=== PATIENT | male | born 1965 | race Caucasian/White ===

== ENCOUNTER → 2018-09-15 08:49 | Outpatient (CLI) | payer OTHER, SELFPAY ==
[2018-09-15 12:52] LABS: Absolute Lymphocyte Count 0.64 X10^3/ul (0.83-4.51); Absolute Neutrophil Count 4.7 X10^3/uL (2.0-7.7); Basophil# 0.08 X10^3/uL; Basophil% 1.2 % (0-1); Eosinophil# 0.16 X10^3/uL; Eosinophils% 2.3 % (0-5); Hematocrit 37.5 % (40-54); Hemoglobin 12.8 g/dl (13.0-16.5); Lymphocyte # 0.64 X10^3/ul (4.0); Lymphocyte % 9.3 % (19-41); Mean Corp Hgb Conc 34.1 g/gl (32-36); Mean Corpuscular Hgb 31.1 pg (27.0-32.0); Mean Platelet Vol. 9.8 fl (6.2-12.0); Monocyte# 1.27 X10^3/uL; Monocyte% 18.4 % (0-10); Neutrophil # 4.72 X10^3/uL (2.7-7.7); Neutrophil % 68.2 % (47-70); Platelet Count 159 K/mm3 (150-450); RBC Distribution Width SD 52.9 fl (35.1-43.9); Red Blood Count 4.12 M/mm3 (4.6-6.2); White Blood Count 6.9 K/mm3 (4.4-11.0)
[2018-09-15 12:56] LABS: POSITIVE COUNT NO; POSITIVE DIFFERENTIAL NO; POSITIVE MORPHOLOGY NO
[2018-09-15 13:10] LABS: BNP,B-Type NATRIURETIC PEPTIDE 26.4 pg/mL (0-100)
[2018-09-15 13:26] LABS: ALB/GLOB Ratio 0.8 RATIO (0.9-2.4); AST(SGOT) 193 U/L (15-37); Alanine Aminotransfer ALT/SGPT 53 U/L (16-61); Alkaline Phosphatase 194 U/L (45-117); Anion Gap 11 (5-15); BUN 5 mg/dL (7-18); BUN/Creat Ratio 6.2 RATIO (10-20); Calcium,Total 8.6 mg/dL (8.5-10.1); Chloride 86 mmol/L (98-107); Cholesterol 186 mg/dL (200); Creatinine, Serum 0.81 mg/dL (0.70-1.30); EST Glomerular Filtration Rate 106 mL/min (>60); Est Glom Filt Rate - Afr Amer 129 mL/min (>60); Globulin 3.9 g/dL (2.2-4.2); Glucose 95 mg/dL (74-106); High Density Lipoprotein 13 mg/dL; PSA,Total - Annual Screen 0.12 ng/mL (0.00-4.00); Protein, Total 6.9 g/dL (6.4-8.2); Sodium Level 122 mmol/L (136-145); Thyroid Stim Hormone (TSH) 4.09 uIU/mL (0.358-3.74); Triglycerides 149 mg/dL; Very Low Density Lipoprotein 30 mg/dL (5-40)
== END ==
PROVIDERS: Family Provider Family Medicine; PCP Family Medicine; Visit Provider Family Medicine
DX: Z00.00 Encounter for general adult medical examination without abnormal findings (principal); Z12.5 Encounter for screening for malignant neoplasm of prostate; R60.0 Localized edema; R19.7 Diarrhea, unspecified; R60.9 Edema, unspecified
CPT/HCPCS: 36415; 80053; 80061; 83880; 84153; 84443; 85025; 85379; G0103

== ENCOUNTER → 2018-09-15 15:13 | Outpatient (CLI) | payer OTHER, SELFPAY ==
--- NOTE | 2018-09-15 15:36 | VDLE_ITS ---
Reason For Study: BLE Swelling RIGHT LEFT GSV is normal. GSV is normal. CFV is compressible, spontaneous, phasic, CFV is compressible, spontaneous, phasic, competent and demonstrates normal competent, and demonstrates normal augmentation. augmentation. FV is compressible, spontaneous, phasic, FV is compressible, spontaneous, phasic, competent and demonstrates normal competent and demonstrates normal augmentation. augmentation. POP V is compressible, spontaneous, phasic, POP V is compressible, spontaneous, phasic, competent and demonstrates normal competent and demonstrates normal augmentation. augmentation. T/P Trunk is compressible. T/P Trunk is compressible. PTV is compressible. PTV is compressible. RT PerV is compressible. LT PerV is compressible. Procedure Exam performed in department. The exam was diagnostic. A preliminary report was called and/or faxed to Kate Ramachandran's office @ 3:55 pm. Interpretation Summary Deep veins of the lower extremities are bilaterally patent and compressible segmentally. There is no evidence of deep vein thrombosis on either side. Valvular competence appears intact within the proximal deep venous systems bilaterally. The greater saphenous veins appear bilaterally patent and compressible segmentally. Ordering Physician: Zach Ramachandran Referring Physician: Zach Ramachandran Performed By: Swathi Morataya, RDCS, RVT
== END ==
PROVIDERS: Family Provider Family Medicine; PCP Family Medicine; Referring Provider Family Medicine; Visit Provider Family Medicine
DX: R60.0 Localized edema (principal); R79.89 Other specified abnormal findings of blood chemistry
CPT/HCPCS: 93970

== ENCOUNTER → 2018-09-27 09:40 | Outpatient (CLI) | payer OTHER, SELFPAY ==
--- NOTE | 2018-09-27 09:58 | ECHOCS_ITS ---
Reason For Study: SVT, EDEMA, SUSPECTED CIRRHOSIS Procedure This was a 2D Doppler, Color Flow transthoracic echocardiogram. The study was technically difficult. Exam performed in department. Left Ventricle Normal size and thickness. The estimated ejection fraction is 75 %. Stage 1 diastolic dysfunction. No regional wall motion abnormalities noted. Right Ventricle Normal size and thickness. Normal systolic function. Atria Normal left atrium. Normal right atrium. Normal atrial septum. Mitral Valve The mitral valve is structurally normal. No prolapse or stenosis seen. Tricuspid Valve Normal tricuspid valve. Trivial tricuspid valve insufficiency. Right ventricular systolic pressure estimated to be 35 mmHg. Aortic Valve Trisinus/trileaflet aortic valve. Normal aortic valve. Pulmonic Valve Normal pulmonic valve. Great Vessels Normal aortic root. Normal arch. Normal inferior vena cava. Inferior vena cava collapse with sniff. Pericardium/Pleural No pericardial effusion. Medication 22 gauge I.V. with prn adaptor inserted into right arm. Diluted definity 6ml given slow IV push to enhance endocardial definition. MMode/2D Measurements & Calculations LVIDd: 3.8 cm IVSd: 1.1 cm Ao root diam: 3.0 cm LVIDs: 2.2 cm LVPWd: 1.1 cm RVDd: 3.8 cm FS: 42.5 % LAV(MOD-sp4): 24.2 ml LVAd ap4: 30.0 cm2 SV(MOD-sp4): 66.1 ml EDV(MOD-sp4): 94.2 ml EDV(sp4-el): 97.1 ml LVAs ap4: 14.3 cm2 ESV(MOD-sp4): 28.0 ml ESV(sp4-el): 27.2 ml EF(MOD-sp4): 70.2 % EF(sp4-el): 71.9 % SV(sp4-el): 69.8 ml LA A4 area: 9.8 cm2 LA dimension(2D): 3.3 cm RA A4 area: 7.9 cm2 Time Measurements MV dec time: 0.18 sec Doppler Measurements & Calculations MV E max kyler: 52.8 cm/sec Lat Peak E' Kyler: 15.2 cm/sec Med Peak E' Kyler: 11.9 cm/sec MV A max kyler: 95.9 cm/sec E/E' lat: 3.5 E/E' med: 4.5 MV E/A: 0.55 Ao V2 max: 134.4 cm/sec LV V1 max: 117.8 cm/sec PA V2 max: 119.6 cm/sec Ao max P.2 mmHg LV V1 max P.6 mmHg TR max kyler: 273.0 cm/sec TR max P.8 mmHg Interpretation Summary The estimated ejection fraction is 75 %. Stage 1 diastolic dysfunction. Trivial tricuspid valve insufficiency. Right ventricular systolic pressure estimated to be 35 mmHg. Compared to echo report dated 04/17/2014, LV function has reamined the same, but RVSP has gone from 26 to 35. The study was technically difficult. Contrast injection was performed. There is no comparison study available. Ordering Physician: Zach Ramachandran Referring Physician: Zach Ramachandran Performed By: Hayde Batres RDCS
--- NOTE | 2018-09-27 10:41 | US_ITS ---
STUDY: ABDOMINAL ULTRASOUND - RIGHT UPPER QUADRANT REASON FOR VISIT: Male, 53 years old. Cirrhosis TECHNIQUE: Ultrasound evaluation of the right upper quadrant was performed with real-time and static kelley-scale imaging. TECHNICAL QUALITY: Adequate. COMPARISON: None. FINDINGS: Liver: The liver measures 19.9 cm. Mild hepatomegaly. Mildly echogenic cortex with somewhat diminished deep acoustic transmission consistent with presence of hepatic steatosis. No apparent nodular contour the liver and no apparent cirrhotic nodules within the parenchyma. The bile ducts are within normal limits. There is hepatic color flow. The direction of portal flow is hepatopetal. There is no demonstrated mass lesion. There is ascites surrounding the margins of the liver. Gallbladder: Normal distended gallbladder. The gallbladder wall measures 2 mm. There is a negative sonographic Burch's sign. There is no pericholecystic fluid. There are no gallstones. Call bladder sludge is present. Common Bile Duct (C.B.D.): The common bile duct measures 4 mm. Pancreas: Normal size of the head, body and tail of the pancreas. There is normal echogenicity of the pancreas. There is no demonstrated pancreatic mass or cyst. Right Kidney: Normal size of the right kidney. The right kidney measures 11.3 cm. Normal renal cortex. The right cortex measures 2.0 cm. Inferior pole simple appearing cyst measuring 22 x 15 x 15 mm. There is no right hydronephrosis. US/Liver IMPRESSION: Ascites surrounding the margins of the liver. Suspected hepatic steatosis. Mild hepatomegaly. No specific sonographic features of hepatic cirrhosis. Gallbladder sludge without sonographic features of gallbladder inflammation. Electronically Signed: Bryan Patricia MD at 12:13 EDT Tel , Service support ,
== END ==
PROVIDERS: Family Provider Family Medicine; PCP Family Medicine; Referring Provider Family Medicine; Visit Provider Family Medicine
DX: R60.0 Localized edema (principal); I47.1 Supraventricular tachycardia; K74.60 Unspecified cirrhosis of liver
CPT/HCPCS: 76705; 93306; Q9957; A4216; C8929

== ENCOUNTER 2018-10-01 07:02 | Inpatient (IN) | payer OTHER, SELFPAY ==
[2018-10-01] VITALS (31 sets, daily range): BP systolic 39–95; BP diastolic 25–81; PULSE 97–152; RESP 12–158; TEMP 35.4–36.9; O2SAT 89–116; BMI 35.3; BMI 32.9
[2018-10-01] MEDS: Etomidate 20 MG/10 ML Vial IV (07:07)
[2018-10-01] MEDS: Succinylcholine Chloride 200 MG/10 ML Vial 100 MG IV (07:08)
--- NOTE | 2018-10-01 07:20 | NURSING ---
med surg rt upper quad abd pain
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
[2018-10-01] MEDS: 0.9% Normal Saline 1,000 ML 999 ML IV ×2 (08:10)
--- NOTE | 2018-10-01 08:25 | NURSING ---
DR NERISSA BLUM
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
--- NOTE | 2018-10-01 08:39 | NURSING ---
HOSPITALIST IN ROOM
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
--- NOTE | 2018-10-01 09:15 | NURSING ---
Pt arrived to unit, dressing to head changed prior to transferring patient from ER bed to ICU bed. Both wounds bleeding excessively. ABD and trauma dressings applied.
--- NOTE | 2018-10-01 09:25 | RAD_ITS ---
STUDY: X-RAY CHEST REASON FOR EXAM: Male, 53 years old. Line placement, endotracheal tube placement. TECHNIQUE: Single portable frontal chest. COMPARISON: None. FINDINGS: The tip and proximal port of the nasogastric tube are inferior to the left hemidiaphragm and left of midline most likely within the stomach. There is a right PICC line with tip within the proximal right atrium. The endotracheal tube tip is identified approximately 1 cm proximal to the clarice. Consider repositioning and evaluate with clinical function. The lung volumes are quite small which diminishes sensitivity and specificity. However, the lungs appear grossly clear. There is no evident pleural effusion. There is no pneumothorax. There is mild central vascular congestion. There is prominence of the central/perihilar interstitium. There is potentially a 1.76 cm left medial lung base/left retrocardiac spiculated mass. There are [id number] diffuse degenerative changes of the spine. No evident acute osseous abnormality. There is no demonstrated abnormality of the visualized soft tissue structures of the upper abdomen. RAD/Chest 1 View (Portable) IMPRESSION: Support tubes and lines as above. Consider repositioning the endotracheal tube. Please see above. The central vascular congestion and prominence of the central/perihilar interstitium may represent artifact from the small lung volumes. Potential left medial lung base 1.76 cm mass. Consider further evaluation, initially with high-quality PA and lateral chest exam. No pneumothorax. Elevation of the right hemidiaphragm of indeterminate etiology, chronicity and clinical significance. Electronically Signed: Jose David Sood MD at 10:28 EDT , Service support ,
[2018-10-01 09:36] LABS: Allen Test POS; Base Excess -11 mmol/L (-2 to +2); Bicarbonate 18.1 mmol/L (22-26); Blood Gas Specimen Type ART; FI02 100; Mode A-C; O2 Delivery Device Vent; PEEP 5; PO2 213 mmHG (75-100); RR 12; SITE R Radial; SO2 99 % (95-99); Time Given 918; Total Carbon Dioxide 20 mmol/L; Vt 400; pCO2 55.9 mmHg (35-45); pH 7.12 (7.35-7.45)
--- NOTE | 2018-10-01 09:36 | CPS ---
Critical values on ABG handed to Dr. Earl at [id number]
[2018-10-01 09:37] LABS: Differential Indicated MANUAL DIFF; Hemoglobin 5.8 g/dl (13.0-16.5); Mean Corp Hgb Conc 34.1 g/gl (32-36); Mean Corpuscular Hgb 32.2 pg (27.0-32.0); Mean Corpuscular Volume 94.4 fL (80-94); Mean Platelet Vol. 8.6 fl (6.2-12.0); POSITIVE COUNT YES; POSITIVE DIFFERENTIAL NO; POSITIVE MORPHOLOGY YES; Platelet Count 138 K/mm3 (150-450); RBC Distribution Width CV 15.5 % (11.6-14.6); RBC Distribution Width SD 53.7 fl (35.1-43.9); White Blood Count 11.8 K/mm3 (4.4-11.0)
[2018-10-01] MEDS: Lactated Ringers 1,000 ML 100 ML IV (09:38)
[2018-10-01] MEDS: Sodium Bicarbonate 8.4% 50 ML Syringe 100 MEQ IV (09:38)
[2018-10-01 09:45] LABS: International Normalized Ratio 3.4; Prothrombin Time (Protime)PT. 34.2 SECONDS (11.7-14.9)
[2018-10-01 09:46] LABS: Partial Thromboplast Time 42.5 Seconds (24.1-36.2)
[2018-10-01 10:07] LABS: ALB/GLOB Ratio 0.7 RATIO (0.9-2.4); AST(SGOT) 131 U/L (15-37); Alanine Aminotransfer ALT/SGPT 29 U/L (16-61); Albumin, Serum 1.4 g/dL (3.2-5.0); Alkaline Phosphatase 109 U/L (45-117); Anion Gap 10 (5-15); BUN 6 mg/dL (7-18); BUN/Creat Ratio 5.3 RATIO (10-20); Calcium,Total 6.2 mg/dL (8.5-10.1); Chloride 91 mmol/L (98-107); Creatinine, Serum 1.14 mg/dL (0.70-1.30); EST Glomerular Filtration Rate 71 mL/min (>60); Est Glom Filt Rate - Afr Amer 86 mL/min (>60); Estimated Creatinine Clearance 77.38 ml/min; Glucose 103 mg/dL (74-106); Lactic Acid 5.2 mmol/L (0.4-2.0); Potassium 4.5 mmol/L (3.5-5.1); Protein, Total 3.4 g/dL (6.4-8.2); Sodium Level 120 mmol/L (136-145)
[2018-10-01 10:19] LABS: Blast 1 % (0-0); Eosinophil 2 % (0-5); Hypochromasia 1+; Lymphocyte 5 % (19-41); Metamyelocyte 9 % (0-1); Monocyte 1 % (0-10); Myelocyte 2 (0-0); Neutrophil-Band 3 % (0-5); Neutrophil-Segmented 77 % (47-70); Platelet Estimate SLT DEC (ADEQ); Total Cells Counted 100 (MANUAL DIFF)
[2018-10-01 10:20] LABS: Absolute Neutrophil Count 9.4 X10^3/uL (2.0-7.7); Red Cell Morphology N CYTIC NORMAL (NORM C&C)
--- NOTE | 2018-10-01 11:05 | NURSING ---
Dressing to head changed at this time. 30 4x4 gauze, kerlix x2, trauma ABD dressing x1 and DIANNE wrap applied. Gauze saturated immediately after dressing change.
[2018-10-01] MEDS: Sodium Bicarbonate 50 MEQ/50 ML Vial 100 MEQ IV (11:14)
--- NOTE | 2018-10-01 11:14 | CASEMGMT ---
Social Work: This SW provided [facility] social insurance administrator, Lisa,information regarding next of kin and family members. Lisa aware that patient also has a 83 year old mother in addition to brother (Cornelius) and that Cornelius has left to tell patient's mother about situation. Lisa to meet with family when they arrive back. Will continue to stay available as needed. YEVGENIY Dumont
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
--- NOTE | 2018-10-01 11:29 | CPS ---
Right brachial A-line site done with Dr. Earl's supervision
[2018-10-01 11:36] LABS: Base Excess -7 mmol/L (-2 to +2); Bicarbonate 20.3 mmol/L (22-26); Blood Gas Specimen Type ALINE; FI02 100; Mode A-C; O2 Delivery Device Vent; PEEP 5; PO2 286 mmHG (75-100); RR 16; SITE R Brachial; SO2 100 % (95-99); Time Given 1125; Total Carbon Dioxide 22 mmol/L; Vt 500; pCO2 47.7 mmHg (35-45); pH 7.24 (7.35-7.45)
[2018-10-01] MEDS: Lactated Ringers 4,000 ML 999 ML IV (12:02)
--- NOTE | 2018-10-01 12:20 | NURSING ---
Brother Cornelius at bedside. Decision to stop vasopressors made. Jose Sweeney and Lisa from [facility] at bedside and aware.
--- NOTE | 2018-10-01 12:26 | CASEMGMT ---
Social Work: Patient's mother now present at bedside. Spent time with patient's brother and mother providing support. Patient's mother spoke about seeing patient on Tuesday and thinking he did not look good. Patient's brother and mother able to verbalize openly with this SW feelings of grief and sadness. Active listening and supportive counseling provided. SW available to assist as needed with support to family and staff. YEVGENIY Dumont
--- NOTE | 2018-10-01 12:35 | NURSING ---
Epinephrine, Levophed, and Vasopressin stopped at this time per family wishes. Ventilator continued.
[2018-10-01 13:32] LABS: Reflex Lactate? Y
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
--- NOTE | 2018-10-01 16:29 | NURSING ---
Monitor alarm Asystole, no pulse palpable, no apical pulse ausculated. Confirmed by Milana NGUYEN. Dr. Earl at bedside. TOD 1245. Family in waiting room notified.
[2018-10-02 12:57] LABS: Pathologist Review Reviewed
== END 2018-10-01 12:45 | DRG 82 ==
LOC: ED 07:42 → ICU 08:37
PROVIDERS: Internal Medicine Critical Care Medicine; Admitting Provider Internal Medicine; Emergency Provider Emergency Medicine; Family Provider Family Medicine; PCP Family Medicine; Visit Provider Internal Medicine
DX: S06.2X9A Diffuse traumatic brain injury with loss of consciousness of unspecified duration, initial encounter (principal); J96.00 Acute respiratory failure, unspecified whether with hypoxia or hypercapnia; T79.4XXA Traumatic shock, initial encounter; D62 Acute posthemorrhagic anemia; E87.1 Hypo-osmolality and hyponatremia; I50.32 Chronic diastolic (congestive) heart failure; S01.00XA Unspecified open wound of scalp, initial encounter; R40.2432 Glasgow coma scale score 3-8, at arrival to emergency department; Y92.002 Bathroom of unspecified non-institutional (private) residence as the place of occurrence of the external cause; F10.20 Alcohol dependence, uncomplicated; F32.9 Major depressive disorder, single episode, unspecified; K72.90 Hepatic failure, unspecified without coma
CPT/HCPCS: 31500; 31720; 36556; 36600; 36620; 51702; 71045; 80053; 82803; 83605; 84484; 85025; 85610; 85730; 86850; 86900; 86920; 86921; 86922; 94002; 99251; 99285; J7030; J7050; J7120; P9016; A4216; C1751; G0463; J0610; J3490